=== PATIENT | female | born 1940 | race Caucasian/White ===

== ENCOUNTER → 2016-06-09 | Outpatient (CLI) | payer MEDICARE, OTHER | LOC: RAD 10:50 | PROVIDERS: ATTEND Family Medicine | DX: Z12.31 Encounter for screening mammogram for malignant neoplasm of breast (principal) ==

== ENCOUNTER → 2016-08-24 | Outpatient (REF) | payer MEDICARE, OTHER | LOC: LAB 14:07 | PROVIDERS: ATTEND Surgery | DX: L72.0 Epidermal cyst (principal) | CPT/HCPCS: 87070; 87075; 87205 ==